=== PATIENT | female | born 1980 | race Caucasian/White ===

== ENCOUNTER 2019-06-06 10:39 | Day surgery (SDC) | payer BC ==
[~2019-06-06] VITALS: Ht 175.3 cm; Wt 69.3 kg
[~2019-06-06 10:39] MED LIST: LIDOCAINE/PF 1%-EPI 1:200K, 30 ML ONE; ROPIvacaine/PF 0.5%, 30 ML ONE
[2019-06-06] MEDS ORDERED: LACTATED RINGERS 1,000 ML IV SCH (11:01)
[2019-06-06 11:13] VITALS: BP 124/90
[2019-06-06] MEDS ORDERED: MELATONIN PO (11:29)
[2019-06-06] MEDS ORDERED: MULT1CAP19 PO (11:29)
[2019-06-06] MEDS ORDERED: PLEASE ENTER HEIGHT AND WEIGHT MC SCH (11:30)
[2019-06-06] MEDS ORDERED: PLEASE ENTER ALLERGIES MC SCH (11:30)
[2019-06-06] MEDS ORDERED: FENTANYL PF 250 MCG/5ML ONE (12:19)
[2019-06-06] MEDS ORDERED: MIDAZOLAM 1 MG/ML, 2ML ONE (12:19)
[2019-06-06] MEDS ORDERED: CEFAZOLIN 1,000 MG ONE (12:34)
[2019-06-06] MEDS ORDERED: ROCURONIUM 10MG/ML,5ML ONE (12:34)
[2019-06-06] MEDS ORDERED: SUCCINYLCHOLINE 20 MG/ML, 10ML ONE (12:34)
[2019-06-06] MEDS ORDERED: ONDANSETRON 2MG/ML, 2ML ONE (12:34)
[2019-06-06] MEDS ORDERED: PROPOFOL 10 MG/ML, 20ML ONE (12:34)
[2019-06-06] MEDS ORDERED: DEXAMETHASONE 4 MG/ML, 1ML ONE (12:34)
[2019-06-06] MEDS ORDERED: KETOROLAC 30 MG/1 ML IV PRN (13:00)
[2019-06-06] MEDS ORDERED: ALBUTEROL SULFATE 2.5 MG/3 ML NPPB PRN (13:00)
[2019-06-06] MEDS ORDERED: HYDROmorphone 1 MG/ML, 1ML INJ IV PRN (13:00)
[2019-06-06] MEDS ORDERED: PROMETHAZINE 25 MG/ML, 1ML IV PRN (13:00)
[2019-06-06] MEDS ORDERED: ONDANSETRON 2MG/ML, 2ML IVPush PRN (13:00)
[2019-06-06] MEDS ORDERED: OXYcodone 5 MG/5 ML ORAL.SOL UDC PO PRN (13:00)
[2019-06-06] MEDS ORDERED: FENTANYL PF 100 MCG/2ML IV PRN (13:00)
[2019-06-06] MEDS ORDERED: LABETALOL 5MG/ML, 20ML IV PRN (13:00)
[2019-06-06] MEDS ORDERED: hydrALAzine 20 MG/ML, 1ML IV PRN (13:00)
[2019-06-06] MEDS ORDERED: MEPERIDINE/PF 25MG/0.5ML IVPush PRN (13:00)
[2019-06-06] MEDS ORDERED: METOCLOPRAMIDE 5 MG/ML, 2ML IV PRN (13:00)
[2019-06-06] MEDS ORDERED: KETOROLAC 30 MG/1 ML ONE (14:10)
[2019-06-06] MEDS ORDERED: OXYcodone 5 MG/5 ML ORAL.SOL UDC ONE (14:10)
[2019-06-06] MEDS ORDERED: FENTANYL PF 100 MCG/2ML ONE (14:10)
[2019-06-06] MEDS ORDERED: MEPERIDINE/PF 25MG/ML,1ML ONE (14:30)
== END 2019-06-06 15:40 | disposition home or self-care (01) ==
LOC: OUT 10:39
PROVIDERS: ATTEND Orthopaedic Surgery
DX: S83.512A Sprain of anterior cruciate ligament of left knee, initial encounter (principal); S83.242A Other tear of medial meniscus, current injury, left knee, initial encounter; M65.862 Other synovitis and tenosynovitis, left lower leg; F17.200 Nicotine dependence, unspecified, uncomplicated; Z79.891 Long term (current) use of opiate analgesic; Z79.899 Other long term (current) drug therapy; X58.XXXA Exposure to other specified factors, initial encounter; Y93.89 Activity, other specified; Y92.89 Other specified places as the place of occurrence of the external cause; Y99.8 Other external cause status
CPT/HCPCS: 29881; 29888; 64447; 73560; 81025; C1713; C1762; J0330; J0690; J1100; J1885; J2175; J2250; J2405; J2704; J2795; J3010; J3490; 76000